=== PATIENT | male | born 1930 | race Caucasian/White ===

== ENCOUNTER 2017-11-16 12:39 | Emergency (ER) | payer MEDICARE, BC ==
[~2017-11-16 12:39] MED LIST: EPINEPHrine 10 ML SYRINGE (0.1 MG/ML) ONE
--- NOTE | 2017-11-16 12:57 | ED ---
CPR HPI - General Stated Complaint: Cardiac Arrest Time Seen by Provider: 11/16/17 12:39 Source: EMS, RN notes reviewed Mode of arrival: EMS - History of Present Illness Initial Comments: This is a 87-year-old male with an unknown past medical history who was found unresponsive in his vehicle at about 11:40 AM this morning he was last seen alive and awake at about 1120. 911 system was activated patient had CPR and a Darren protocol was started. The entire time the patient was apneic and pulseless. He was transported to this facility his last epinephrine given when EMS was at 12:26. She was given 1 additional epinephrine in the emergency department. He arrived in the ER at 12:32 PM ACLS protocol was continued until 12:41 was considered to be futile. Patient was pronounced at 12:41 PM Eastern daily times MD Complaint: found unresponsive Review of Systems ROS Statement: Those systems with pertinent positive or pertinent negative responses have been documented in the HPI. ROS Other: All systems not noted in ROS Statement are negative. Limitations: ROS unobtainable due to patients medical condition General Exam - General Exam Comments Initial Comments: This a well-developed well-nourished unresponsive male CPR was in progress Limitations: altered mental status General appearance: other (Unresponsive) Head exam: Present: other (Abrasion seen over the left scalp this is from his removal from his vehicle apparently.) Eye exam: Present: other (Pupils are fixed and dilated) ENT exam: Present: other (7.[address]) Neck exam: Present: normal inspection. Absent: tenderness, meningismus, lymphadenopathy Respiratory exam: Present: other (Good respiratory sounds and excursion bilaterally with ventilatory efforts by medics.) Cardiovascular Exam: Present: other (No pulses without CPR) GI/Abdominal exam: Present: soft, normal bowel sounds. Absent: distended, tenderness, guarding, rebound, rigid Rectal exam: Present: normal inspection exam: Present: normal inspection (Uncircumcised) Extremities exam: Present: normal inspection, other (Pulseless) Back exam: Present: normal inspection Neurological exam: Present: other (Unresponsive) Psychiatric exam: Present: other (Unresponsive) Skin exam: Present: dry, pallor Course - Reevaluation(s) Reevaluation #1: 11/16/17 14:04 I did discuss the findings with a nephew that is present. I was able find out that Dr. Dunn is his doctor Reevaluation #2: 11/16/17 14:04 [address] discuss case Dr. Dunn's office who is agreed to accept & the doesn't have it. Reevaluation #3: 11/16/17 14:04 I discuss case with the medical support specialist's office patient is released medical support specialist numbers [phone] Reevaluation #4: 11/16/17 14:05 Further information gathered from Dr. Dunn's office patient does have a history of atrial fibrillation stage IV chronic renal failure hypertension hyperlipidemia and type 2 diabetes. Medical Decision Making - Medical Decision Making The patient is a sudden cardiac diagnosis at this time. Other family members are in route. Disposition Clinical Impression: Sudden cardiac Disposition: Is patient prescribed a controlled substance at d/c from ED?: No Referrals: None,Stated [Primary Care Provider] - 1-2 days Preliminary Cause of : Sudden cardiac
== END 2017-11-16 17:13 | disposition expired ==
LOC: EC 12:39
DX: I46.9 Cardiac arrest, cause unspecified (principal); I10 Essential (primary) hypertension; I48.91 Unspecified atrial fibrillation
CPT/HCPCS: 99285; 92950; J0171